=== PATIENT | female | born 1935 | race Caucasian/White ===

== ENCOUNTER 2024-04-03 19:40 | Emergency (ER) | payer MEDICARE, MEDICAID ==
[2024-04-03 20:33] LABS: HEMATOCRIT 26.3 % (34.2-48.2); HEMOGLOBIN 8.7 g/dL (11.4-15.5); MEAN CORPUSCULAR HGB CONC 33.2 g/dL (31.9-34.8); MEAN CORPUSCULAR VOLUME 90.4 fL (76.7-100.5); MEAN PLATELET VOLUME 6.5 fL (7.1-12.4); PLATELET COUNT,PLT 488 x10(3)uL (151-488); RED BLOOD CELL COUNT 2.91 x10(6)uL (3.60-5.20); RED CELL DISTRIBUTION WIDTH 13.5 % (12.3-16.5); WHITE BLOOD CELL COUNT,WBC 14.9 x10-3/uL (3.0-10.3)
[2024-04-03 20:38] LABS: BLOOD UREA NITROGEN,BUN 27 mg/dL (7-18); BUN/CREATININE RATIO 20.8 (9-20); CALCIUM 8.9 mg/dL (8.6-10.2); CARBON DIOXIDE,CO2 25 mmol/L (21-32); CHLORIDE,CL 101 mmol/L (100-110); CREATININE 1.3 mg/dL (0.55-1.02); EST CRCL DRUG DOSING (CG) 22.31 mL/min; ESTIMATED GFR 40 mL/min (>60); GLUCOSE RANDOM 167 mg/dL (80-116); POTASSIUM,K 4.9 mmol/L (3.5-5.3); SODIUM,NA 136 mmol/L (135-145)
[2024-04-03 20:43] LABS: A/G RATIO 0.8; ALANINE AMINOTRANSFERASE,ALT 26 U/L (12-36); ALBUMIN 3.3 g/dL (3.2-4.6); ALKALINE PHOSPHATASE 133 IU/L (56-112); ASPARTATE AMNIOTRANSFERASE,AST 18 IU/L (5-25); BILIRUBIN TOTAL 0.2 mg/dL (0.1-1.3); PROTEIN TOTAL,TP 7.7 g/dL (6.0-8.0)
[2024-04-03 20:48] LABS: LYMPHOCYTES PERCENT MAN 19 % (13-37); MONOCYTES PERCENT MAN 13 % (4-12); SEG NEUTROPHILS PERCENT MAN 68 % (46-82)
== END 2024-04-03 21:16 | disposition home or self-care (01) ==
LOC: FB.ED 19:40
DX: D25.9 Leiomyoma of uterus, unspecified (principal); D50.0 Iron deficiency anemia secondary to blood loss (chronic); I25.10 Atherosclerotic heart disease of native coronary artery without angina pectoris; I11.0 Hypertensive heart disease with heart failure; I50.9 Heart failure, unspecified; K21.9 Gastro-esophageal reflux disease without esophagitis; M19.90 Unspecified osteoarthritis, unspecified site; Z88.0 Allergy status to penicillin; Z88.1 Allergy status to other antibiotic agents; Z88.2 Allergy status to sulfonamides; Z88.5 Allergy status to narcotic agent; Z88.8 Allergy status to other drugs, medicaments and biological substances; Z91.040 Latex allergy status; Z91.048 Other nonmedicinal substance allergy status; Z91.018 Allergy to other foods; Z79.82 Long term (current) use of aspirin; Z79.899 Other long term (current) drug therapy
CPT/HCPCS: 36415; 80053; 85025; 99284

== ENCOUNTER 2024-05-14 09:48 | Emergency (ER) | payer MEDICARE, MEDICAID ==
[2024-05-14 10:52] LABS: BASOPHILS PERCENT AUTO 0.4 % (0.2-1.5); EOSINOPHILS PERCENT AUTO 0.4 % (0.6-8.1); HEMATOCRIT 26.1 % (34.2-48.2); HEMOGLOBIN 8.8 g/dL (11.4-15.5); LYMPHOCYTES PERCENT AUTO 17.9 % (18.4-52.1); MEAN CORPUSCULAR HGB CONC 33.9 g/dL (31.9-34.8); MEAN CORPUSCULAR VOLUME 94.4 fL (76.7-100.5); MEAN PLATELET VOLUME 7.1 fL (7.1-12.4); MONOCYTES ABSOLUTE AUTO 2.2 x10-3/uL (0.3-1.0); MONOCYTES PERCENT AUTO 20.3 % (4.4-15.7); NEUTROPHILS ABSOLUTE AUTO 6.7 x10-3/uL (1.5-6.3); PLATELET COUNT,PLT 361 x10(3)uL (151-488); RED BLOOD CELL COUNT 2.76 x10(6)uL (3.60-5.20); RED CELL DISTRIBUTION WIDTH 12.7 % (12.3-16.5)
[2024-05-14 10:53] LABS: BLOOD UREA NITROGEN,BUN 39 mg/dL (7-18); BUN/CREATININE RATIO 22.9 (9-20); CALCIUM 8.9 mg/dL (8.6-10.2); CARBON DIOXIDE,CO2 28 mmol/L (21-32); CHLORIDE,CL 105 mmol/L (100-110); CREATININE 1.7 mg/dL (0.55-1.02); EST CRCL DRUG DOSING (CG) 20.51 mL/min; ESTIMATED GFR 29 mL/min (>60); GLUCOSE RANDOM 123 mg/dL (80-116); POTASSIUM,K 5.5 mmol/L (3.5-5.3); SODIUM,NA 141 mmol/L (135-145)
[2024-05-14 11:05] LABS: A/G RATIO 0.7; ALANINE AMINOTRANSFERASE,ALT 25 U/L (12-36); ALBUMIN 3.2 g/dL (3.2-4.6); ALKALINE PHOSPHATASE 149 IU/L (56-112); ASPARTATE AMNIOTRANSFERASE,AST 22 IU/L (5-25); BILIRUBIN TOTAL 0.5 mg/dL (0.1-1.3); PROTEIN TOTAL,TP 7.9 g/dL (6.0-8.0)
[2024-05-14] MEDS: Acetaminophen 500 MG Tab PO ONE (11:06)
[2024-05-14 11:14] LABS: LACTIC ACID 0.7 mmol/L (0.4-2.0)
[2024-05-14 11:27] LABS: TROPONIN I 42.6 pg/mL (4.0-60.3)
[2024-05-14] MEDS: Sodium Chloride 0.9% 1,000 ML IV SCH ×2 (11:31→14:00)
[2024-05-14 12:27] LABS: APPEARANCE,URINE CLEAR (CLEAR); COLOR,URINE YELLOW (YELLOW)
[2024-05-14 12:28] LABS: BACTERIA,URINE FEW (NS); BILIRUBIN,URINE NEGATIVE (NEGATIVE); EPITHELIAL CELLS,URINE OCCASIONAL; GLUCOSE,URINE NORMAL (NORMAL); KETONES,URINE NEGATIVE (NEGATIVE); LEUKOCYTE ESTERASE,URINE NEGATIVE (NEGATIVE); NITRITE,URINE NEGATIVE (NEGATIVE); OCCULT BLOOD,URINE NEGATIVE (NEGATIVE); PROTEIN,URINE NEGATIVE (NEGATIVE); RBC,URINE 0-5 (0-5); UROBILINOGEN,URINE NORMAL (NEGATIVE); WBC,URINE 0-5 (0-5)
[2024-05-14] MEDS: Meropenem 1 GM SDV IVPUSH ONE (13:26)
[2024-05-14] MEDS: VANCOmycin 1 GM/200 ML 1 GM in Premix Bag 1 BAG IV ONE (13:35)
== END 2024-05-14 15:00 ==
LOC: FB.ED 09:48
DX: A41.9 Sepsis, unspecified organism (principal); R65.20 Severe sepsis without septic shock; N17.9 Acute kidney failure, unspecified; I13.0 Hypertensive heart and chronic kidney disease with heart failure and stage 1 through stage 4 chronic kidney disease, or unspecified chronic kidney disease; I50.9 Heart failure, unspecified; N18.9 Chronic kidney disease, unspecified; D50.0 Iron deficiency anemia secondary to blood loss (chronic); E86.0 Dehydration; E87.5 Hyperkalemia; I25.10 Atherosclerotic heart disease of native coronary artery without angina pectoris; K21.9 Gastro-esophageal reflux disease without esophagitis; M19.90 Unspecified osteoarthritis, unspecified site; Z87.891 Personal history of nicotine dependence; Z86.79 Personal history of other diseases of the circulatory system; Z88.0 Allergy status to penicillin; Z88.5 Allergy status to narcotic agent; Z88.1 Allergy status to other antibiotic agents; Z88.8 Allergy status to other drugs, medicaments and biological substances; Z91.018 Allergy to other foods; Z79.82 Long term (current) use of aspirin; Z79.899 Other long term (current) drug therapy
CPT/HCPCS: 36415; 71045; 80053; 81001; 83605; 83880; 84484; 85025; 86140; 87040; 87428-QW; 93005; 93010; 96361; 96365; 96375; 99285; 99285-25; A9270-GY; J2185; J3372; J7030

== ENCOUNTER 2024-05-21 07:48 | Inpatient (IN) | payer MEDICARE, MEDICAID ==
[2024-05-21] MEDS ORDERED: Nitroglycerin 0.4 MG Tab.SL SL PRN (12:36)
[2024-05-21] MEDS: CARBOXYMETHYLCELLULOSE 0.5% EYEBOTH SCH (15:27)
[2024-05-21] MEDS: Ondansetron 4 MG Tab.DIS PO SCH (17:47)
[2024-05-21] MEDS: Latanoprost 0.005% Ophth Soln 2.5 ML Bottle EYEBOTH SCH (20:39)
[2024-05-21] MEDS: Famotidine 20 MG Tab PO SCH (20:41)
[2024-05-21] MEDS: Cyclobenzaprine 10 MG Tab PO PRN (20:50)
[2024-05-22] MEDS: Pantoprazole 40 MG Tab.CR PO SCH (07:18)
[2024-05-22] MEDS: Cholecalciferol (Vitamin D3) 5,000 UNIT Cap PO SCH (08:42)
[2024-05-22] MEDS: Calcium Carbonate 500 MG Tablet PO SCH (08:42)
[2024-05-22] MEDS: Megestrol Susp 40 MG/ML ML (240 ML Bottle) PO SCH (08:42)
[2024-05-22] MEDS: Aspirin 81 MG Tab.EC PO SCH (08:43)
[2024-05-22] MEDS: Spironolactone 25 MG Tab PO SCH (08:43)
[2024-05-22] MEDS: Furosemide 20 MG Tab PO SCH (08:43)
[2024-05-22] MEDS: [UNRECOGNIZED DRUG - OTHER] PO SCH (08:50)
[2024-05-22] MEDS: Benzonatate 100 MG Cap PO PRN (13:51)
[2024-05-23] MEDS: Ferrous Sulfate 325 MG Tab PO SCH (08:19)
[2024-05-25] MEDS: Polyethylene Glycol 3350 Powder 17 GM Packet PO PRN (20:29)
== END 2024-05-26 11:10 | disposition home health service (06) | DRG 948 ==
LOC: FB.MS 11:31
PROVIDERS: ADMIT Internal Medicine; ATTEND Family Medicine
DX: R53.81 Other malaise (principal); I50.22 Chronic systolic (congestive) heart failure; I42.8 Other cardiomyopathies; Z66 Do not resuscitate; I27.20 Pulmonary hypertension, unspecified; H91.90 Unspecified hearing loss, unspecified ear; I25.10 Atherosclerotic heart disease of native coronary artery without angina pectoris; K21.9 Gastro-esophageal reflux disease without esophagitis; M19.90 Unspecified osteoarthritis, unspecified site; I11.0 Hypertensive heart disease with heart failure; H40.9 Unspecified glaucoma; J10.1 Influenza due to other identified influenza virus with other respiratory manifestations; M54.12 Radiculopathy, cervical region; M48.02 Spinal stenosis, cervical region; R53.1 Weakness; C54.1 Malignant neoplasm of endometrium; Z88.8 Allergy status to other drugs, medicaments and biological substances; Z88.2 Allergy status to sulfonamides; Z88.1 Allergy status to other antibiotic agents; Z91.040 Latex allergy status; Z79.82 Long term (current) use of aspirin; Z79.899 Other long term (current) drug therapy; Z98.49 Cataract extraction status, unspecified eye
CPT/HCPCS: 97161-GP; 97165-GO; 97530-GP; A9270-GY; Q0162